=== PATIENT | female | born 1995 | race Caucasian/White ===

== ENCOUNTER 2023-12-24 09:45 | Inpatient (IN) | payer OTHER, SELFPAY ==
[2023-12-24] VITALS (41 sets, daily range): BP systolic 80–114; BP diastolic 48–69; PULSE 43–171; RESP 14–16; TEMP 36.4–37.5; O2SAT 80–100; BMI 25.9
[2023-12-24] MEDS: Lactated Ringers 1,000 ML 50 ML IV (10:20)
[2023-12-24] MEDS: Oxytocin 15 Units/NS 250ml 15 UNITS/250 ML IV.SOLN 2 UNITS IV (10:35)
[2023-12-24 10:41] LABS: Absolute Lymphocyte Count 1.61 X10^3/uL (0.83-4.51); Absolute Neutrophil Count 13.2 X10^3/uL (2.0-7.7); Basophil# 0.03 X10^3/uL; Basophil% 0.2 % (0-1); Eosinophil# 0.03 X10^3/uL; Eosinophils% 0.2 % (0-5); Hematocrit 35.4 % (37-47); Hemoglobin 11.3 g/dL (12.0-15.0); Lymphocyte # 1.61 X10^3/ul (0.83-4.51); Lymphocyte % 10.2 % (19-41); Mean Corp Hgb Conc 31.9 g/dL (32-36); Mean Corpuscular Hgb 25.4 pg (27.0-32.0); Mean Corpuscular Volume 79.6 fL (81-99); Mean Platelet Vol. 11.1 fl (6.2-12.0); Monocyte# 0.83 X10^3/uL; Monocyte% 5.3 % (0-10); NRBC Flagged by Analyzer 0 % (0-5); Neutrophil # 13.16 X10^3/uL (2.7-7.7); Neutrophil % 83.2 % (47-70); Platelet Count 201 K/mm3 (150-450); RBC Distribution Width CV 13.6 % (11.6-14.6); RBC Distribution Width SD 38.4 fl (35.1-43.9); Red Blood Count 4.45 M/mm3 (4.2-5.4); White Blood Count 15.8 K/mm3 (4.4-11.0)
[2023-12-24] MEDS: Lactated Ringers 1,000 ML 999 ML IV (10:50)
[2023-12-24 11:13] LABS: Syphilis Antibodies Non-reactive
[2023-12-24] MEDS: fentaNYL-bupivacaine (epidural) 100 ML BAG EPIDURAL ×2 (11:36→16:34)
--- NOTE | 2023-12-24 12:49 | PCM.HP.OB ---
HPI - General General Date of Admission: 12/24/23 Date of Service: 12/24/23 Chief Complaint: contractions HPI Narrative PRAKASH WATKINS, is a 28 F who presents with ctx's. no vb, lof. Good FM. PFSH PFSH Home Medications ?Medication ?Instructions ?Recorded ?Last Taken ?Type vit no.95-ferrous 1 tab PO DAILY 12/24/23 12/23/23 History fumarate 28 mg-folic acid 800 mcg tablet ( Multivitamins) Allergy/AdvReac Type Severity Reaction Status Date / Time No Known Allergies Allergy Verified 12/24/23 07:38 Surgical History (Updated 12/24/23 @ 10:47 by Yoly Aguilar) History of surgery Social History Smoking Status: Never smoker History Elective abortions Hx Para 1 Spontaneous abortions Hx # Term Pregnancies Ectopic pregnancies Hx # Pregnancies Multiple births # of living children NST FHR Rate Baby A FHR Category:: Category I Uterine Activity:: irregular ctx's on admission Vital Signs Vital Signs Vital Signs: 12/24/23 06:46 12/24/23 06:46 12/24/23 06:47 Pulse Rate 82 Blood Pressure 102/66 BP Systolic 102 BP Diastolic 66 Pulse Ox 100 12/24/23 06:47 12/24/23 08:20 12/24/23 08:20 Pulse Rate 77 76 Blood Pressure 100/59 L BP Systolic 100 BP Diastolic 59 Pulse Ox 12/24/23 08:21 12/24/23 08:21 12/24/23 11:23 Pulse Rate 57 L 89 Blood Pressure BP Systolic BP Diastolic Pulse Ox 99 12/24/23 11:23 12/24/23 11:24 12/24/23 11:24 Pulse Rate 70 Blood Pressure 106/60 BP Systolic 106 BP Diastolic 60 Pulse Ox 97 12/24/23 11:27 12/24/23 11:27 12/24/23 11:28 Pulse Rate 75 80 Blood Pressure BP Systolic BP Diastolic Pulse Ox 92 12/24/23 11:28 12/24/23 11:30 12/24/23 11:30 Pulse Rate 76 Blood Pressure 104/58 L BP Systolic 104 BP Diastolic 58 Pulse Ox 100 12/24/23 11:33 12/24/23 11:33 12/24/23 11:34 Pulse Rate 70 Blood Pressure 104/56 L BP Systolic 104 BP Diastolic 56 Pulse Ox 100 12/24/23 11:34 12/24/23 11:38 12/24/23 11:38 Pulse Rate 75 80 Blood Pressure BP Systolic BP Diastolic Pulse Ox 100 12/24/23 11:39 12/24/23 11:39 12/24/23 11:43 Pulse Rate 67 78 Blood Pressure 105/59 L BP Systolic 105 BP Diastolic 59 Pulse Ox 12/24/23 11:43 12/24/23 11:45 12/24/23 11:45 Pulse Rate 71 Blood Pressure 101/59 L BP Systolic 101 BP Diastolic 59 Pulse Ox 100 12/24/23 11:48 12/24/23 11:48 12/24/23 11:49 Pulse Rate 72 Blood Pressure 106/59 L BP Systolic 106 BP Diastolic 59 Pulse Ox 100 12/24/23 11:49 12/24/23 11:54 12/24/23 11:54 Pulse Rate 80 74 Blood Pressure 98/54 L BP Systolic 98 BP Diastolic 54 Pulse Ox 12/24/23 11:59 12/24/23 11:59 12/24/23 12:04 Pulse Rate 69 Blood Pressure 101/58 L 99/58 L BP Systolic 101 99 BP Diastolic 58 58 Pulse Ox 12/24/23 12:04 12/24/23 12:09 12/24/23 12:09 Pulse Rate 71 74 Blood Pressure 96/53 L BP Systolic 96 BP Diastolic 53 Pulse Ox 12/24/23 12:11 12/24/23 12:11 12/24/23 12:31 Pulse Rate 69 Blood Pressure 99/54 L BP Systolic 99 BP Diastolic 54 Pulse Ox 100 12/24/23 12:31 Pulse Rate 86 Blood Pressure BP Systolic BP Diastolic Pulse Ox Weight Weight: 165 lb 6.4 oz Body Mass Index (BMI) 25.9 Labs Labs Labs: Blood Type B NEGATIVE Antibody Screen NEGATIVE Hct 35.4 % (37-47) L Hgb 11.3 g/dL (12.0-15.0) L Syphilis Total Ab Non-reactive Assessment & Plan (1) 40 weeks gestation of : PLAN: Admit for labor. Cervical change noted from 1 to 3 cm. Contractions irregular so pitocin started per protocol. GBS negative. Pelvis adequate and EFW < 4500 grams. Anticipate vaginal delivery. (2) Uterine contractions:
--- NOTE | 2023-12-24 12:50 | PCM.PN.BLA ---
Progress Note patient comfortable with epidural. Assessment & Plan Assessment/Plan (1) Uterine contractions: (2) 40 weeks gestation of : PLAN: S/p epidural. AROM performed in usual fashion with return of clear fluid.
[2023-12-24] MEDS: Lactated Ringers 1,000 ML 200 ML IV (16:34)
[2023-12-24] MEDS: Oxytocin 15 Units/NS 250ml 15 UNITS/250 ML IV.SOLN 334 UNITS IV (17:50)
--- NOTE | 2023-12-24 18:27 | PCM.OPRPT ---
Problems Associated Problem List Diagnoses (1) Uterine contractions: (2) 40 weeks gestation of : (3) Vaginal delivery: (4) Third degree perineal laceration: Report of Operation Date of Procedure: 12/24/23 Pre-Operative Diagnosis: 40 week gestation, labor Post-Operative Diagnosis: As above Surgery/Procedure Performed:: Repair of third degree perineal laceration Description of Surgical Findings:: VFI in RICHARD position. Normal appearing placenta with 3 VC. 3B perineal laceration. Apgars 8, 9. Surgeon: Connie Block Type of Anesthesia: Epidural Special Medications: None Specimen's removed: Placenta Drains: Ray Estimated Blood Loss (mL): 150 Fluids Replaced: N/A Description of Procedure: Patient complete and pushing. Head of infant delivered in RICHARD. The anterior shoulder was delivered with gentle downward traction, followed by the posterior shoulder and body of infant without any excessive traction, force or delay. A vigorous VFI was placed on maternal abdomen. The cord was clamped and cut after a 60 second delay by FOB. The placenta delivered intact and normal appearing with gentle fundal massage with 3 VC. A 3B perineal laceration was noted. The anal sphincter was identified and repaired in an end to end fashion using 2-0 Vicryl. Next the vaginal mucosa and perineum were repaired in usual fashion using 3-0 Vicryl. A rectal exam was performed after repair. Fundus firm and bleeding hemostatic. A vaginal sweep was performed. Sharp and sponge counts were correct. Grafts/Implants Used: None Complications None Admit VTE Documentation VTE Present on Admission: No
[2023-12-24] MEDS: Oxytocin 15 Units/NS 250ml 15 UNITS/250 ML IV.SOLN 83 UNITS IV (18:30)
--- NOTE | 2023-12-24 22:11 | NURSING ---
Unable to void at this time while up to the bathroom.
[2023-12-24] MEDS: Benzocaine/Lanolin/Aloe Vera 1 SPRAY EACH TOPICAL (23:54)
[2023-12-24] MEDS: Acetaminophen 500 MG Tablet PO (23:54)
[2023-12-25] VITALS (7 sets, daily range): BP systolic 74–101; BP diastolic 48–65; PULSE 64–86; RESP 14–16; TEMP 36.7–37; O2SAT 98–100
[2023-12-25] MEDS: Rho(D) Immune Globulin 300 MCG (1500 Unit) Syringe IV (03:28)
--- NOTE | 2023-12-25 07:50 | EKG12_ITS ---
Test Reason : HYPOTENSION Blood Pressure : / mmHG Vent. Rate : 080 BPM Atrial Rate : 080 BPM P-R Int : 108 ms QRS Dur : 082 ms QT Int : 356 ms P-R-T Axes : -01 034 034 degrees QTc Int : 410 ms Sinus rhythm with short NE with frequent Premature ventricular complexes Otherwise normal ECG No previous ECGs available Confirmed by PATRICK BURRELL, RYAN ([id number]), make up editor ALPESH KOCH ([id number]) on 12/28/2023 10:19:33 AM Referred By: Soumya Sousa Confirmed By:KEI NGUYEN MD
[2023-12-25 08:31] LABS: Absolute Neutrophil Count 12.6 X10^3/uL (2.0-7.7); Basophil# 0.04 X10^3/uL; Basophil% 0.3 % (0-1); Eosinophils% 0.6 % (0-5); Hematocrit 30.4 % (37-47); Hemoglobin 9.5 g/dL (12.0-15.0); Lymphocyte % 10.7 % (19-41); Mean Corp Hgb Conc 31.3 g/dL (32-36); Mean Platelet Vol. 11.1 fl (6.2-12.0); Monocyte% 8.2 % (0-10); NRBC Flagged by Analyzer 0 % (0-5); Neutrophil % 79.3 % (47-70); Platelet Count 171 K/mm3 (150-450); RBC Distribution Width CV 13.8 % (11.6-14.6); RBC Distribution Width SD 39.5 fl (35.1-43.9); White Blood Count 15.9 K/mm3 (4.4-11.0)
--- NOTE | 2023-12-25 08:45 | PCM.PN.OB ---
Subjective Subjective Feels good. Not light headed. Breast feeding well. Mild lochia. PVCs on EKG. Labs pending. Hgb 9.5 Objective Data Objective Data Vital Signs: Vital Signs Temp Pulse Resp BP Pulse Ox O2 Del Method 98.4 F 86 14 74/49 L 98 Room Air 12/25/23 07:40 12/25/23 07:40 12/25/23 07:40 12/25/23 07:40 12/25/23 07:40 12/25/23 07:40 Oxygen Delivery Method Room Air Weight: 75.024 kg Body Mass Index (BMI) 25.9 Intake & Output: Intake and Output for Last 24 Hours 12/23/23 12/24/23 12/25/23 23:59 23:59 23:59 Intake Total 3011.56 / 3011.56 Output Total 1100 / 1700 1700 / 1700 Balance 1911.56 / 1311.56 -1700 / -1700 Lab / Micro Data 12/25/23 08:05 12/25/23 08:05 Labs: Laboratory Results - last 24 hr 12/24/23 10:20: WBC 15.8 H, RBC 4.45, Hgb 11.3 L, Hct 35.4 L, MCV 79.6 L, MCH 25.4 L, MCHC 31.9 L, RDW Std Deviation 38.4, RDW Coeff of Chandrika 13.6, Plt Count 201, MPV 11.1, Immature Gran % (Auto) 0.900, Neut % (Auto) 83.2 H, Lymph % (Auto) 10.2 L, Mcmullen % (Auto) 5.3, Eos % (Auto) 0.2, Baso % (Auto) 0.2, Absolute Neuts (auto) 13.2 H, Absolute Lymphs (auto) 1.61, Nucleated RBC % 0, Syphilis Total Ab Non-reactive, Blood Type B NEGATIVE, Antibody Screen NEGATIVE 12/24/23 21:30: Screen NEGATIVE, Baby's Blood Type O POSITIVE, Baby's MICHELLE NEGATIVE 12/25/23 08:05: WBC 15.9 H, RBC 3.80 L, Hgb 9.5 L, Hct 30.4 L, MCV 80.0 L, MCH 25.0 L, MCHC 31.3 L, RDW Std Deviation 39.5, RDW Coeff of Chandrika 13.8, Plt Count 171, MPV 11.1, Immature Gran % (Auto) 0.900, Neut % (Auto) 79.3 H, Lymph % (Auto) 10.7 L, Mcmullen % (Auto) 8.2, Eos % (Auto) 0.6, Baso % (Auto) 0.3, Absolute Neuts (auto) 12.6 H, Absolute Lymphs (auto) 1.70, Nucleated RBC % 0 ROS Constitutional Constitutional: Denies fatigue, fever(s) or malaise Eyes Eyes: Denies change in vision ENT HEENT: Denies dizziness or headache(s) Cardiovascular Cardiovascular: Denies chest pain, dyspnea or lightheadedness Respiratory/Chest Respiratory/Chest: Denies cough or dyspnea Gastrointestinal Gastrointestinal: Denies change in bowel habits Genitourinary Genitourinary: Denies burning urination or genital lesions Integumentary Integumentary: Denies rash Neurologic Neurologic: Denies confusion, dizziness, headache(s), numbness or weakness Physical Exam Const alert and no apparent distress Narrative: Fundus firm, below umbilicus. Assessment & Plan (1) Third degree perineal laceration: (2) Vaginal delivery:
[2023-12-25 09:19] LABS: ALB/GLOB Ratio 0.7 RATIO (0.9-2.4); AST(SGOT) 37 U/L (15-37); Alanine Aminotransfer ALT/SGPT 18 U/L (13-56); Albumin, Serum 2.3 g/dL (3.2-5.0); Alkaline Phosphatase 155 U/L (45-117); Anion Gap 4 (5-15); BUN 5 mg/dL (7-18); BUN/Creat Ratio 11.4 RATIO (10-20); Calcium,Total 8.3 mg/dL (8.5-10.1); Chloride 114 mmol/L (98-107); Creatinine, Serum 0.44 mg/dL (0.55-1.02); EST Glomerular Filtration Rate 181 mL/min (>60); Est Glom Filt Rate - Afr Amer 219 mL/min (>60); Estimated Creatinine Clearance 201.25 ml/min; Globulin 3.5 g/dL (2.2-4.2); Glucose 89 mg/dL (74-106); Potassium 3.8 mmol/L (3.5-5.1); Protein, Total 5.8 g/dL (6.4-8.2); Sodium Level 142 mmol/L (136-145)
[2023-12-25] MEDS: Acetaminophen 500 MG Tablet 1000 MG PO (10:08)
[2023-12-25] MEDS: Senna/Docusate Sodium 1 Tablet PO (12:05)
--- NOTE | 2023-12-25 17:55 | PCM.DC.SUM ---
Providers Date of Admission: 12/24/23 Date of Discharge: 12/25/23 Primary Care Physician: Katherin Primary Care Phys Reason For Visit: VAGINAL DELIVERY Diagnosis Discharge Diagnosis (1) Third degree perineal laceration: Status: Acute Code(s): O70.20 - Third degree perineal laceration during delivery, unspecified (2) Vaginal delivery: Status: Acute Code(s): O80 - Encounter for full-term uncomplicated delivery Medications at Discharge Home Medications vit no.95-ferrous fumarate 28 mg-folic acid 800 mcg tablet ( Multivitamins) 1 tab PO DAILY 12/24/23 Hospital Course Operations None Procedures None Summary of Care Provided Minutes Spent on Discharge: 21 Hospital Course: Presented in labor. with third degree laceration. Uncomplicated course. Breast feeding. Physical Exam Const alert and no apparent distress Narrative: Fundus firm, below umbilicus. Weight / BMI Weight Weight: 75.024 kg Body Mass Index (BMI) 25.9 ABG / Lab / Microbiology Data 12/25/23 08:05 12/25/23 08:05 Laboratory: Laboratory Results - last 24 hr 12/24/23 21:30: Screen NEGATIVE, Baby's Blood Type O POSITIVE, Baby's MICHELLE NEGATIVE 12/25/23 08:05: WBC 15.9 H, RBC 3.80 L, Hgb 9.5 L, Hct 30.4 L, MCV 80.0 L, MCH 25.0 L, MCHC 31.3 L, RDW Std Deviation 39.5, RDW Coeff of Chandrika 13.8, Plt Count 171, MPV 11.1, Immature Gran % (Auto) 0.900, Neut % (Auto) 79.3 H, Lymph % (Auto) 10.7 L, [place] % (Auto) 8.2, Eos % (Auto) 0.6, Baso % (Auto) 0.3, Absolute Neuts (auto) 12.6 H, Absolute Lymphs (auto) 1.70, Nucleated RBC % 0, Sodium 142, Potassium 3.8, Chloride 114 H, Carbon Dioxide 24.0, Anion Gap 4 L, BUN 5 L, Creatinine 0.44 L, Estim Creat Clear Calc 201.25, Est GFR (MDRD) Af Amer 219, Est GFR (MDRD) Non-Af 181, BUN/Creatinine Ratio 11.4, Glucose 89, Calcium 8.3 L, Total Bilirubin 0.30, AST 37, ALT 18, Alkaline Phosphatase 155 H, Total Protein 5.8 L, Albumin 2.3 L, Globulin 3.5, Albumin/Globulin Ratio 0.7 L D/C Instructions May resume sexual activity in: 6 weeks Please Follow Up With: Cari Mauricio MD When: Follow up with our office in 1-2 and 6 weeks or as needed. [phone] Meaningful Use Info Meaningful Use Meaningful Use Diagnoses (Choose all that apply): None applicable Ischemic Stroke Statin Dosing Therapy Reference: STATIN DOSE THERAPY REFERENCE: * Patients > 75 years receive moderate or high dose statin therapy. * Patients 75 years or YOUNGER should receive HIGH intensity statin dose unless contraindicated. You will be required to document reason for non-treatment if statin daily dose does not meet guidelines. HIGH DOSE STATIN THERAPY DAILY Atorvastatin > than or = to 40 mg Rosuvastatin > than or = to 20 mg Amlodipine + Atorvastatin > than or = to 2.5/40 mg Ezetimibe + Simvastatin 10/80 mg Simvastatin 80mg Discharge Plan Admission Admit Date/Time: 12/24/23 09:45 Primary Reason for Your Visit: labor Attending Provider: Connie Block Primary Care Provider: Care Physician,Katherin Primary Discharge Orders/Prescriptions Prescriptions: Continued PNV cmb#95-ferrous fumarate-FA [ Multivitamins] 28 mg iron- 800 mcg tablet 1 tab PO DAILY Referrals / Follow Up: Care Physician,No Primary [Primary Care Provider] - Disposition Disposition (needs filled in before D/C Order can be placed): Home, Self Care
== END 2023-12-25 20:40 | disposition home or self-care (01) | DRG 768 ==
LOC: WPOUT 10:02 → WP 10:02
PROVIDERS: Admitting Provider Obstetrics & Gynecology; Referring Provider Obstetrics & Gynecology; Visit Provider Obstetrics & Gynecology
DX: O47.1 False labor at or after 37 completed weeks of gestation (principal); Z37.0 Single live birth; O70.23 Third degree perineal laceration during delivery, IIIc; Z3A.40 40 weeks gestation of pregnancy
CPT/HCPCS: 59025; 59050; 80053; 85025; 85461; 86780; 86850; 86900; 86901; 90384; 93005; 99221; J7120; G0378; J2790; J2791